=== PATIENT | male | born 1995 | race Caucasian/White ===

== ENCOUNTER 2017-03-10 11:31 | Emergency (ER) | payer BC, OTHER ==
[~2017-03-10] VITALS: Ht 175.3 cm; Wt 65.8 kg
[2017-03-10 11:49] VITALS: BP 116/70
[2017-03-10] MEDS ORDERED: LIDOCAINE 1% INJ 20 ML (XYLOCAINE) VIAL INJ STA (11:52)
--- NOTE | 2017-03-10 12:01 | ED Integumentary General ---
General Chief Complaint: Skin/Wound Problems Stated Complaint: SPOT ON LEFT EAR Nursing Triage Note: ARRIVED VIA AMB TO ROOM 08. COMPLAINS OF ABSCESS ON THE BACK OF HIS LEFT EAR THAT HE WANTS DRAINED. Source: patient, spouse Exam Limitations: no limitations History of Present Illness Time seen by provider: 11:43 Initial Comments 21 yo male patient presents to the ED with c/o an abscess posterior to the left ear. Denies drainage. has had a cyst removed in the same area previously. Timing/Duration: getting worse, other (increasing in size over the last week) Possible Cause: no cause identified Modifying Factors: worse with other (worse with palpation) Allergies and Home Medications Allergies Coded Allergies: No Known Drug Allergies (Unverified , 09/14/15) Constitutional: No chills, No fever, No malaise EENTM: see HPI, other (post auricular abscess and pain), No ear discharge, No ear pain Respiratory: no symptoms reported Cardiovascular: no symptoms reported Musculoskeletal: no symptoms reported Skin: see HPI Psychiatric/Neurological: Denies Headache All Other Systems Reviewed Negative Unless Noted: Yes (Negative excepted noted.) Past [id number] Hx Patient Social History Recent Foreign Travel: No Contact w/Someone Who Travel: No Recent Infectious Disease Expo: No Immunizations Up To Date Tetanus Booster (TDap): Unknown Seasonal Allergies Seasonal Allergies: No Surgeries History of Surgeries: No Respiratory History of Respiratory Disorde: No Cardiovascular History of Cardiac Disorders: No Neurological History of Neurological Disord: No Reproductive System Hx Reproductive Disorders: No Sexually Transmitted Disease: No HIV/AIDS: No Musculoskeletal History of Musculoskeletal Dis: No Endocrine History of Endocrine Disorders: No HEENT History of HEENT Disorders: No Integumentary History of Skin or Integumenta: Yes (sebaceous cyst ) Blood Transfusions Adverse Reaction to a Blood Tr: No Reviewed Nursing Assessment Reviewed/Agree w Nursing PMH: Yes Family Medical History Significant Family History: No Pertinent Family Hx Physical Exam Vital Signs Vital Sign - Last 12Hours 03/10/17 11:49 Temp 98.0 Pulse 60 Resp 18 B/P (MAP) 116/70 Pulse Ox 99 Capillary Refill : Less Than 3 Seconds General Appearance: WD/WN, no apparent distress HEENT: PERRL/EOMI, pharynx normal, other (1x2 cm infected sebaceous cyst posterior to the left ear with TTP and mild erythema.) Neck: non-tender, full range of motion, supple, normal inspection Cardiovascular: normal peripheral pulses, regular rate, rhythm, no murmur Respiratory: lungs clear, normal breath sounds, no respiratory distress, no accessory muscle use Neurologic/Psychiatric: alert, normal mood/affect, oriented x 3 Skin: normal color, warm/dry, other (1x2 cm infected sebaceous cyst posterior to the left ear with TTP and mild erythema.) Skin Problem Location: other (posterior to the left ear) Skin Problem Character: other (1x2 cm infected sebaceous cyst posterior to the left ear with TTP and mild erythema.) I&D : Site: left postauricular Blade Size: 11 I & D Procedure: betadine prep, Wound Packing Packing/Drain: Idoform 06/08 Progress wound culture obtained. blood loss minimal. patient tolerated the procedure well. Progress/Results/Core Measures Results/Orders My Orders Orders - CHRISTY FAIR Lidocaine 1% Injection (Xylocaine 1% Inj (03/10/17 11:52) Vital Signs/I&O Vital Sign - Last 12Hours 03/10/17 11:49 Temp 98.0 Pulse 60 Resp 18 B/P (MAP) 116/70 Pulse Ox 99 Blood Pressure Mean: 85 Departure Impression Impression: Primary Impression: Infected sebaceous cyst of skin Disposition: HOME, SELF-CARE Condition: Improved Departure-Patient Inst. Decision time for Depature: 12:01 Referrals: NO,LOCAL PHYSICIAN (PCP/Family) Primary Care Physician Patient Instructions: SEBACEOUS CYST-I&D Add. Discharge Instructions: All discharge instructions reviewed with patient and/or family. Voiced understanding. Medications as instructed. Tylenol extra strength over-the- counter as directed for pain. Ibuprofen 800 mg by mouth every 8 hours as needed for pain. Shower with antibacterial soap. Change packing once daily. Follow-up with the primary care provider or geophysicist of your choice for recheck and possible need for removal. Return to the emergency department for worsened pain, redness, drainage, fever, or any other concerns. Scripts Sulfamethoxazole/Trimethoprim (Sulfamethoxazole-Tmp Ds Tablet) 1 Each Tablet 1 EACH PO BID, #14 TAB 0 Refills Prov: CHRISTY FAIR 03/10/17 CHRISTY FAIR Mar 10, 2017 12:01
[2017-03-10] MEDS ORDERED: SULF-222 PO (12:03)
[2017-03-10] MEDS ORDERED: OXYC-197 PO (12:53)
== END 2017-03-10 13:04 | disposition home or self-care (01) ==
LOC: EDUNIT# 11:31 → ER 11:34
DX: L72.3 Sebaceous cyst (principal)
CPT/HCPCS: 87070; 87205; 99281